=== PATIENT | female | born 1970 | race Hispanic/Latino ===

== ENCOUNTER 2017-01-16 09:16 | Day surgery (SDC) | payer MEDICAID ==
[2017-01-16] MEDS ORDERED: Dexamethasone 10 MG, Admixture Fee 1 EACH in Sodium Chloride 0.9% 50 ML IVPB SCH (09:30)
[2017-01-16] MEDS ORDERED: Famotidine/PF 20 MG, Admixture Fee 1 EACH in Sodium Chloride 0.9% 50 ML IVPB SCH (09:30)
[2017-01-16] MEDS ORDERED: PERTUZUMAB IVPB SCH (09:30)
[2017-01-16] MEDS ORDERED: SODIUM CHLORIDE IVPB SCH ×3 (09:30→09:45)
[2017-01-16] MEDS ORDERED: Palonosetron HCl 0.25 MG, Admixture Fee 1 EACH in Sodium Chloride 0.9% 50 ML IVPB SCH (09:30)
[2017-01-16] MEDS ORDERED: ADMIXTURE FEE IVPB SCH ×3 (09:30→09:45)
[2017-01-16 09:44] VITALS: BP 118/64; TEMP 98
[2017-01-16] MEDS ORDERED: TRASTUZUMAB IVPB SCH (09:45)
[2017-01-16] MEDS ORDERED: DOCETAXEL IVPB SCH (09:45)
[2017-01-16] MEDS ORDERED: FLU VACC QS2017-18 36 mo. & older 0.5 ML SYRINGE IM ONE (21:00)
== END 2017-01-16 14:18 | disposition home or self-care (01) ==
LOC: ONC/OP 09:16
PROVIDERS: ATTEND Internal Medicine Medical Oncology
DX: Z51.11 Encounter for antineoplastic chemotherapy (principal); C50.812 Malignant neoplasm of overlapping sites of left female breast; Z79.1 Long term (current) use of non-steroidal anti-inflammatories (NSAID); Z17.1 Estrogen receptor negative status [ER-]
CPT/HCPCS: 96367; 96413; 96417; A4216; J1100; J1642; J2469; J7050; J9171; J9306; J9355; S0028

== ENCOUNTER 2017-02-06 11:05 | Day surgery (SDC) | payer MEDICAID, OTHER ==
[2017-02-06] MEDS ORDERED: Sodium Chloride 0.9% 20 ML ONE (11:16)
[2017-02-06] MEDS ORDERED: Dexamethasone 10 MG, Admixture Fee 1 EACH in Sodium Chloride 0.9% 50 ML IVPB SCH (11:30)
[2017-02-06] MEDS ORDERED: Palonosetron HCl 0.25 MG, Admixture Fee 1 EACH in Sodium Chloride 0.9% 50 ML IVPB SCH (11:30)
[2017-02-06] MEDS ORDERED: SODIUM CHLORIDE IVPB SCH ×3 (11:30→11:45)
[2017-02-06] MEDS ORDERED: PERTUZUMAB IVPB SCH (11:30)
[2017-02-06] MEDS ORDERED: ADMIXTURE FEE IVPB SCH ×3 (11:30→11:45)
[2017-02-06] MEDS ORDERED: Famotidine/PF 20 MG, Admixture Fee 1 EACH in Sodium Chloride 0.9% 50 ML IVPB SCH (11:45)
[2017-02-06] MEDS ORDERED: TRASTUZUMAB IVPB SCH (11:45)
[2017-02-06] MEDS ORDERED: DOCETAXEL IVPB SCH (11:45)
[2017-02-06 11:50] VITALS: BP 114/57; TEMP 98.6
== END 2017-02-06 16:07 | disposition home or self-care (01) ==
LOC: ONC/OP 11:05
PROVIDERS: ATTEND Internal Medicine Medical Oncology
DX: Z51.11 Encounter for antineoplastic chemotherapy (principal); C50.812 Malignant neoplasm of overlapping sites of left female breast; Z79.899 Other long term (current) drug therapy; Z17.1 Estrogen receptor negative status [ER-]
CPT/HCPCS: 96367; 96375; 96413; 96417; A4216; J1100; J1642; J2469; J7050; J9171; J9306; J9355; S0028

== ENCOUNTER 2017-02-27 10:40 | Day surgery (SDC) | payer OTHER ==
[2017-02-27] MEDS ORDERED: Famotidine/PF 20 mg/2ml Vial SLOW IVP SCH (11:30)
[2017-02-27] MEDS ORDERED: Palonosetron HCl 0.25 MG, Admixture Fee 1 EACH in Sodium Chloride 0.9% 50 ML IVPB SCH (11:30)
[2017-02-27] MEDS ORDERED: Dexamethasone 10 MG, Admixture Fee 1 EACH in Sodium Chloride 0.9% 50 ML IVPB SCH (11:30)
[2017-02-27] MEDS ORDERED: TRASTUZUMAB IVPB SCH (11:45)
[2017-02-27] MEDS ORDERED: ADMIXTURE FEE IVPB SCH ×2 (11:45)
[2017-02-27] MEDS ORDERED: SODIUM CHLORIDE IVPB SCH ×2 (11:45)
[2017-02-27] MEDS ORDERED: DOCETAXEL IVPB SCH (11:45)
[2017-02-27] MEDS: PERTUZUMAB IVPB SCH ×2 (13:05→14:33)
[2017-02-27] MEDS: SODIUM CHLORIDE IVPB SCH ×2 (13:05→14:33)
[2017-02-27] MEDS: ADMIXTURE FEE IVPB SCH ×2 (13:05→14:33)
[2017-02-27 17:38] VITALS: BP 101/58; TEMP 98
== END 2017-02-27 16:10 | disposition home or self-care (01) ==
LOC: ONC/OP 10:40
PROVIDERS: ATTEND Internal Medicine Medical Oncology
DX: Z51.11 Encounter for antineoplastic chemotherapy (principal); C50.812 Malignant neoplasm of overlapping sites of left female breast; Z17.1 Estrogen receptor negative status [ER-]; Z98.890 Other specified postprocedural states
CPT/HCPCS: 96367; 96375; 96413; 96417; 99211; G0463; J1100; J2469; J7050; J9171; J9306; J9355; S0028

== ENCOUNTER 2017-03-07 12:29 | Outpatient (CLI) | payer OTHER | END 2017-03-07 12:30 | disposition home or self-care (01) | LOC: ULT 12:29 | PROVIDERS: ATTEND Internal Medicine Medical Oncology | DX: Z51.11 Encounter for antineoplastic chemotherapy (principal); C50.812 Malignant neoplasm of overlapping sites of left female breast; Z79.899 Other long term (current) drug therapy | CPT/HCPCS: 93306 ==

== ENCOUNTER 2017-03-20 10:57 | Day surgery (SDC) | payer OTHER ==
[2017-03-20] MEDS ORDERED: Dexamethasone 10 MG in Sodium Chloride 0.9% 50 ML IVPB SCH (11:15)
[2017-03-20] MEDS ORDERED: SODIUM CHLORIDE 0.9% IVPB SCH ×4 (11:15→11:45)
[2017-03-20] MEDS ORDERED: TRASTUZUMAB IVPB SCH ×3 (11:15→11:45)
[2017-03-20] MEDS ORDERED: DOCETAXEL IVPB SCH (11:15)
[2017-03-20] MEDS ORDERED: Famotidine/PF 20 mg/2ml Vial SLOW IVP SCH (11:15)
[2017-03-20] MEDS ORDERED: Pertuzumab 420 MG in Sodium Chloride 0.9% 250 ML 250 ML IVPB SCH (11:15)
[2017-03-20] MEDS ORDERED: Palonosetron HCl 0.25 MG in Sodium Chloride 0.9% 50 ML IVPB SCH (11:15)
[2017-03-20 12:11] VITALS: BP 118/67; TEMP 98
[2017-03-20] MEDS ORDERED: Sodium Chloride 0.9% 20 ML ONE (12:17)
== END 2017-03-20 17:07 | disposition home or self-care (01) ==
LOC: ONC/OP 10:57
PROVIDERS: ATTEND Internal Medicine Medical Oncology
DX: Z51.11 Encounter for antineoplastic chemotherapy (principal); C50.812 Malignant neoplasm of overlapping sites of left female breast; Z17.1 Estrogen receptor negative status [ER-]; Z98.890 Other specified postprocedural states; Z79.899 Other long term (current) drug therapy
CPT/HCPCS: 96367; 96375; 96413; 96417; A4216; J1100; J1642; J2469; J5355; J7050; J9171; J9306; J9355; S0028

== ENCOUNTER 2017-04-10 10:04 | Day surgery (SDC) | payer OTHER ==
[2017-04-10] MEDS ORDERED: SODIUM CHLORIDE 0.9% IVPB SCH (11:00)
[2017-04-10] MEDS ORDERED: TRASTUZUMAB IVPB SCH (11:00)
[2017-04-10] MEDS ORDERED: Sodium Chloride 0.9% 20 ML ONE (11:59)
== END 2017-04-10 13:50 | disposition home or self-care (01) ==
LOC: ONC/OP 10:04
PROVIDERS: ATTEND Internal Medicine Medical Oncology
DX: Z51.11 Encounter for antineoplastic chemotherapy (principal); C50.812 Malignant neoplasm of overlapping sites of left female breast; Z17.1 Estrogen receptor negative status [ER-]; Z79.899 Other long term (current) drug therapy; Z98.890 Other specified postprocedural states
CPT/HCPCS: 96413; A4216; J1642; J7050; J9355

== ENCOUNTER 2017-05-01 10:04 | Day surgery (SDC) | payer OTHER ==
--- NOTE | 2017-04-25 19:47 | HP ---
HISTORY OF PRESENT ILLNESS: Sherri Russell is a 46-year-old female who I saw on 11/19/2016, biopsy left breast cancer, advanced T4 with palpable lymphadenopathy, placed a MediPort. She has bee n seeing Dr. Schuster and has completed new adjunctive therapy with TCH and Perjeta for poorly differ entiated invasive ductal carcinoma of the left breast with ulceration of the nipple and multiple cuta neous nodules, ER/UT negative, HER-2 positive, stage 3B, T4b N1a M0 G3. Patient has completed chemot herapy and referred for mastectomy. She has Medicaid. She had an appointment to see Dr. Lawrence stevenson to discuss reconstruction, but this was postponed because of weather condition. She has an appoint ment to see him in 05/14/2017. Plan is for a left modified radical mastectomy, sentinel node biopsy, probably node dissection and two weeks postoperatively, Dr. Ndiaye will place an inpatient pharmacist and 2 weeks after that she will probably begin radiation therapy, continue chemotherapy and at a later time begin left breast expansion preparation for reconstruction. Patient's Medicaid is a problem as far as rec onstruction as Medicaid will not reliably cover reconstructive procedures. Breast cancer nurse navig ator has been performed and she will evaluate this. Once the patient sees Dr. Lawrence Ndiaye, Plastic Surgery, we will schedule her surgery. Risks of infection, bleeding, reoperation discussed and conse nts. MEDICATIONS: None routinely. PAST MEDICAL HISTORY: Left breast cancer, advanced as noted above. PAST SURGICAL HISTORY: C-sections, MediPort placement, left breast biopsy, 11/05/2016. FAMILY HISTORY: Noncontributory. TOBACCO: None. ALCOHOL: None. SOCIAL HISTORY: The patient is . REVIEW OF SYSTEMS: Ten point noncontributory, otherwise. PHYSICAL EXAMINATION: VITAL SIGNS: 133 pounds, 63 inches, 19 BMI, 90/57 blood pressure, 88 heart rate, temperature 98.2 de grees. HEENT: Unremarkable. LUNGS: Clear to auscultation. CARDIAC: Regular rate and rhythm without murmur or gallop. ABDOMEN: Soft, nontender. Right chest MediPort, right breast and right axilla without masses. Left axilla without obvious lymphadenopathy. Left breast mass, upper outer quadrant approximately 4-6 cm . There are some small nodules in the skin overlying this, but much smaller than before, history of prior residual after chemotherapy. ASSESSMENT: Advanced left breast cancer. PLAN: Left modified radical mastectomy with Plastic Surgery followup and postop most likely she will require radiation therapy. We will plan sentinel node biopsy. She will plan axillary node dissecti on if indicated, which is very good likelihood. Risks and benefits explained. She consents.
[2017-05-01] MEDS ORDERED: Sodium Chloride 0.9% 20 ML ONE (10:21)
[2017-05-01] MEDS ORDERED: SODIUM CHLORIDE IVPB SCH (10:30)
[2017-05-01] MEDS ORDERED: ADMIXTURE FEE IVPB SCH (10:30)
[2017-05-01] MEDS ORDERED: TRASTUZUMAB IVPB SCH (10:30)
[2017-05-01 11:02] VITALS: BP 90/33; TEMP 97.2
== END 2017-05-01 13:13 | disposition home or self-care (01) ==
LOC: ONC/OP 10:04
PROVIDERS: ATTEND Internal Medicine Medical Oncology
DX: Z51.11 Encounter for antineoplastic chemotherapy (principal); C50.812 Malignant neoplasm of overlapping sites of left female breast; Z98.891 History of uterine scar from previous surgery; Z98.890 Other specified postprocedural states
CPT/HCPCS: 96413; A4216; J1642; J7050; J9355

== ENCOUNTER 2017-05-22 10:22 | Day surgery (SDC) | payer OTHER ==
[2017-05-22] MEDS ORDERED: ADMIXTURE FEE IVPB SCH (10:30)
[2017-05-22] MEDS ORDERED: SODIUM CHLORIDE IVPB SCH (10:30)
[2017-05-22] MEDS ORDERED: TRASTUZUMAB IVPB SCH (10:30)
[2017-05-22] MEDS ORDERED: Sodium Chloride 0.9% 20 ML ONE (10:45)
== END 2017-05-22 12:50 | disposition home or self-care (01) ==
LOC: ONC/OP 10:22
PROVIDERS: ATTEND Internal Medicine Medical Oncology
DX: Z51.11 Encounter for antineoplastic chemotherapy (principal); C50.812 Malignant neoplasm of overlapping sites of left female breast; Z17.1 Estrogen receptor negative status [ER-]; Z95.828 Presence of other vascular implants and grafts; Z98.890 Other specified postprocedural states
CPT/HCPCS: 80048; 85025; 96413; A4216; J1642; J7050; J9355

== ENCOUNTER 2017-06-02 19:02 | Inpatient (IN) | payer OTHER ==
[2017-06-02] MEDS ORDERED: HYDROcodone/Acetaminophen 5/325 mg Tablet PO PRN (21:46)
[2017-06-02] MEDS ORDERED: Ondansetron HCl/PF 4 MG/2 ML Vial IVP PRN (21:46)
[2017-06-02] MEDS ORDERED: Ondansetron ODT 4 MG TAB PO PRN (21:46)
[2017-06-02] MEDS ORDERED: Milk Of Magnesia 30 ML UDCUP PO PRN (21:46)
[2017-06-02 21:53] VITALS: BMI 21.3
[2017-06-03] MEDS ORDERED: Ibuprofen 200 MG TAB PO PRN (00:01)
[2017-06-03] MEDS ORDERED: Dexamethasone 10 MG in Sodium Chloride 0.9% 50 ML IVPB SCH (00:15)
[2017-06-03] MEDS ORDERED: Dexamethasone 4 mg/ml Vial SLOW IVP SCH (00:15)
[2017-06-03] MEDS ORDERED: Sodium Chloride 0.9% 1,000 ML IV SCH (00:15)
[2017-06-03] MEDS: Dexamethasone 4 mg/ml Vial SLOW IVP SCH ×2 (01:39→05:33)
--- NOTE | 2017-06-03 02:16 | HP ---
PRIMARY CARE PHYSICIAN: None. PRESENTING COMPLAINT: Headaches. HISTORY OF PRESENT ILLNESS: 47-year-old lady, who was diagnosed with breast cancer a year ago and status post chemotherapy. She was recently diagnosed with recurrent about 2 weeks ago. Today, she complains of 4 day history of headaches associated with low grade fever and chills as well as nausea and vomiting. Headaches is throbbing and radiating from the occipital to the frontal area, intermittent 8/10 and associated with blurry vision. There is no photophobia. She has no other symptoms. She went to the ER, where a CT brain was done, which shows multiple areas of edema throughout the brain, most likely around, parenchymal mass, suggestive of metastatic disease. She also had a CTA chest, which revealed a large left breast mass with diffuse interstitial thickening in the lungs, but no evidence of pulmonary emboli. There were also small sclerotic areas in the thoracic vertebrae, suspicious for metastatic disease. Dr. Schuster was then called, who recommended admission and IV steroid administration as well as Oncology consult. PAST MEDICAL HISTORY: Breast cancer. PAST SURGICAL HISTORY: section. FAMILY HISTORY: Reviewed and noncontributory. SOCIAL HISTORY: Does not smoke cigarettes, but drinks alcohol occasionally ( less than 1 drink a day). ALLERGIES: None. REVIEW OF SYSTEMS: Constitutional: Per HPI. HEENT: Positive headaches, changes in vision Respiratory: Negative for shortness of breath, chest pain or cough. CVS: Negative. Abdomen: Negative. Skin: Negative. Musculoskeletal: Negative. Neurologic: Positive headaches. Allergy/ immunology: Negative. Hematology: Negative. Psychiatric: Negative. Denies depressed mood, homicidal or suicidal ideations. PHYSICAL EXAMINATION: VITAL SIGNS: Temperature 98.4, pulse 107, respiratory rate 18, oxygen saturation 94% on room air, blood pressure 124/81. GENERAL: Not in acute distress, sitting comfortably in bed. HEENT: Normocephalic, atraumatic, no pallor, anicteric. PERRLA, EOMI. RESPIRATORY: Vesicular breath sounds bilaterally. No wheezes or rales. CARDIOVASCULAR: Slightly tachycardic with normal rhythm. S1, S2 only. No murmurs, rubs or gallops. ABDOMEN: Bowel sounds positive, nontender, nondistended, no organomegaly. MUSCULOSKELETAL: No skeletal abnormalities. SKIN: Warm, dry, well-perfused. No rashes or lesions. NEUROLOGIC: Alert and oriented to time, place and person. No focal deficits. PSYCHIATRIC: Normal mood and affect. LABORATORY DATA: WBC 12.4, otherwise normal. Significant chemistry: Potassium 3.3, slightly elevated lactic dehydrogenase, ALT/AST ratio. IMAGING: As stated in the HPI. ASSESSMENT AND PLAN: 1. Headaches likely from metastatic breast cancer as seen on CT brain. She has been started on IV Decadron. We will monitor vital signs closely and get Oncology consult. 2. Tachycardia. We will hydrate and monitor vital signs closely. Also ensure adequate pain control. She is currently symptom free. CODE STATUS: Full. MTDD
[2017-06-03] MEDS ORDERED: Zolpidem Tartrate 5 MG TAB PO PRN (02:35)
[2017-06-03 05:27] LABS: Anion Gap 14 mmol/L (10-20); BUN (Urea Nitrogen) 13 mg/dL (7.0-18.7); Calc. Creatinine Clearance 81 mL/min (70-130); Calcium 9.9 mg/dL (7.8-10.44); Carbon Dioxide 21 mmol/L (22-29); Chloride 106 mmol/L (98-107); Estimated GFR-MDRD 86; Glucose 144 mg/dL (70-105); Potassium 3.9 mmol/L (3.5-5.1); Sodium 137 mmol/L (136-145)
[2017-06-03 05:32] LABS: #Lymphocytes 1.2 thou/uL (1.20-3.40); #Neutrophils 9.2 thou/uL (1.40-6.50); %Eosinophils 0.1 % (0.0-10.0); %Monocytes 0.4 % (0.0-10.0); %Neutrophils 88.4 % (42.0-75.0); Hemoglobin 12.2 g/dL (12.0-16.0); Mean Corpuscular HGB CONC 32.8 g/dL (32.0-36.0); Mean Corpuscular Hemoglobin 29.8 pg (27.0-31.0); Mean Corpuscular Volume 90.7 fl (81.0-99.0); Mean Platelet Volume 7.5 fL (7.4-10.4); Platelet Count 333 thou/uL (130-400); RBC Distribution Width 12.9 % (11.5-14.5); Red Blood Cell (RBC) Count 4.11 mill/uL (4.20-5.40); White Blood Cell (WBC) Count 10.4 thou/uL (4.8-10.8)
[2017-06-03] MEDS: Acetaminophen 325 MG TAB PO PRN ×2 (07:43→13:20)
[2017-06-03] MEDS ORDERED: FLU VACC QS2017-18 36 mo. & older 0.5 ML SYRINGE IM ONE (09:00)
[2017-06-03] MEDS ORDERED: Prevnar 13-Val Conj/PF 0.5 ML SYRINGE IM ONE (09:00)
--- NOTE | 2017-06-03 11:01 | CON ---
DATE OF CONSULTATION: 06/03/2017 REASON FOR CONSULTATION: Ms. Yousif Russell is a 47-year-old female who now has suspected brain me tastasis from her previously known stage IV breast cancer. I was asked to see her to discuss her opt ions with radiation therapy. HISTORY OF PRESENT ILLNESS: Ms. Russell presented towards the end of last summer with an extensive ra sh on the breast and mass in the left breast. This was felt to be an inflammatory cancer. Biopsy co nfirmed the diagnosis of a grade III invasive ductal carcinoma. The tumor was estrogen receptor nega tive and HER2 receptor positive. Biopsy from the skin confirmed dermal lymphatic involvement. She w as seen by Dr. Schuster and Dr. Vanegas. A PET scan was obtained which showed extensive masses in the breast as well as thickening of the skin. There is axillary adenopathy. There was adenopathy seen in the chest. There were multiple lesions in the bone consistent with bone metastasis, as well as a lesion in the liver consistent with liver metastasis. Thus, she was clinically felt to have stage IV , T4d, N1 M1 disease. She was started on chemotherapy under the direction of Dr. Schuster. This elia motherapy consisted of Taxotere, Herceptin, and Perjeta. She had a good response to her chemotherapy . She was seen by Dr. Vanegas for consideration of surgery, but she apparently wish to pursue reconst ructive surgery as well. There was some delay because of the possible reconstructive surgery. More recently, she has developed some recurrent nodules on the skin. She [facility] with significant headaches for 4 days and vomiting. She was also having a cough. This led to a CT angiogram of the chest which confirmed the abnormalities in the breast. It also showed a di ffuse infiltrate bilaterally of unknown significance in the lungs. CT scan of the head showed multip le areas of vasogenic edema which was likely surrounding multiple nodules in the brain consistent wit h brain metastasis. She was admitted to the hospital for workup and evaluation. Dexamethasone was s tarted and today she reports complete resolution of her headaches and vomiting. I have been asked by Dr. Schuster to see her for consideration of radiation therapy. Presently she denies any pain. She does report a weight loss of 4-6 pounds during chemotherapy. She reports that she is breathing well . She has had a cough which is nonproductive for a week. She denies any hemoptysis. She is not hav ing any itching of the skin or breast complaints. She voices no other complaints. PAST MEDICAL HISTORY: 1. Breast cancer as mentioned above. 2. Status post x1. 3. She denies other medical or surgical problems. MEDICATIONS: Dexamethasone, and Zofran p.r.n. ALLERGIES: No known medical allergies. SOCIAL HISTORY: She lives here in town with her and children. She denies any cigarette or t obacco use. She rarely drinks alcohol. She is working at [employer] FAMILY HISTORY: Negative for breast or ovarian cancer. Her brother from stomach cancer in his 50s. Her father at age 59 from thyroid cancer. There is no other family history of malignancy. REVIEW OF SYSTEMS: Twelve system review of systems was performed and is otherwise negative. PHYSICAL EXAMINATION: VITAL SIGNS: Height 5 feet 3 inches, weight 120 pounds, blood pressure 113/73, pulse is 99, respirat ions are 18, temperature 97.8, O2 saturation is 99%. GENERAL: She is alert and oriented and in no apparent distress. She is well-developed and well-nour ished. Karnofsky performance status is a 90%. HEENT: Eyes; pupils are equal, round, and reactive to light. Extraocular movements are intact. ENT : Oral cavity and oropharynx normal without lesion or erythema. Palate elevates symmetrically. Gin giva is intact. NECK: Supple, without cervical or supraclavicular adenopathy. No thyromegaly. Larynx is midline. LUNGS: Breathing nonlabored. Clear to auscultation and percussion. HEART: Tachycardic without murmur. No lower extremity edema. BACK: No tenderness on fist percussion of her spine. ABDOMEN: No axillary or inguinal adenopathy. BREASTS: Skin over the left breast reveals erythematous nodules which extend to the midline over the sternum. The breast is diffusely firm but especially in the upper outer quadrant where there is a l arge palpable mass. ABDOMEN: Bowel sounds present. Soft, nontender, nondistended, without mass or hepatosplenomegaly. Liver percussed to normal size. SKIN: Alopecia is present. No rash or purpura. NEUROLOGIC: Cranial nerves II-XII grossly intact. Motor strength is 5/5 in both upper and lower ext remities in all muscle groups tested. Reflexes are normal and symmetrical. Gait was not tested. LABORATORY: Initial biopsy showed a grade III invasive ductal carcinoma involving the dermal lymphat ics. The tumor was estrogen receptor negative and HER2 receptor positive. CBC on admission revealed a white blood cell count of 10,400 with hemoglobin of 12.2, hematocrit 37.3, platelet count 333,000. Chemistry group revealed normal electrolytes with a creatinine of 0.72 and a GFR of 86. RADIOLOGIC: CT scan of the head and CT angiogram from admission were both personally reviewed. Agai n, she has masses in the left breast with significant skin thickening. There are bilateral pulmonary infiltrates of unknown significance. CT of the head shows multiple areas of vasogenic edema with so me associated nodularity suggestive of brain metastasis. There was no evidence of bleed. Contrast w as not utilized. Previous PET scan at diagnosis was also personally reviewed, which showed numerous masses in the breast and skin thickening. There was mediastinal adenopathy. There were multiple les ions in the bone consistent with bone metastasis and lesions in the liver consistent with liver metas tasis. ASSESSMENT: Ms. Yousif Russell is a 47-year-old female with an initial clinical stage IV, T4d N1 M I grade III invasive ductal carcinoma of the left breast, who initially had an excellent response to her chemotherapy. Unfortunately, her disease has begun to grow despite maintenance Herceptin and she now has evidence of brain metastasis on her CT angiogram. Her symptoms from her brain metastasis tolbert ve resolved with her dexamethasone use. PLAN: I do agree with the initiation of dexamethasone. I would change this over to a p.o. dosing. I would also start her on Pepcid. I would recommend that we obtain an MRI of the brain to further ev aluate the brain metastasis. Because she has multiple spots likely the best treatment is going to be whole-brain radiation therapy. I made this recommendation to her. The logistics of radiation as we ll as the benefits and risks of treatment were discussed. A simulation procedure was discussed in de pth. Side effects would include but not be limited to skin reaction, fatigue, lower blood counts, tolbert ir loss which may be permanent, headache, nausea, vomiting, and small risk of damage to her normal br ain which might affect mentation or memory. Time was taken to answer all their questions regarding r adiation. She is tentatively agreeable to proceed. We can obtain the MRI today and hopefully can pr oceed with simulation tomorrow. Her treatment can then be given mostly as an outpatient. I am unsure of the significance of the bilateral pulmonary infiltrates. I would leave this to the spitalist and Medical Oncology to determine the significance of that and whether further workup or tr eatment is needed for that. Thank you for this interesting consultation.
--- NOTE | 2017-06-03 11:21 | CON ---
DATE OF CONSULTATION: 06/03/2017 REASON FOR CONSULTATION: Breast cancer. HISTORY OF PRESENT ILLNESS: Ms. Russell is a 47-year-old female who was diagnosed with stage IIIB ER/IL negative, HER-2 positive invasive ductal carcinoma of the left breast. She had a large m ass that occupied most of the breast with ulceration of the nipple where multiple cutaneous and ipsil ateral axilla lymph nodes noted on exam. She has been treated with Taxotere, carboplatin, and Perjet a for the last few months and Herceptin. She has received a total of 6 cycles. She was seen by Dr. Schuster last week and found to have developed more areas of skin involvement. They were all biopsie d and positive for breast cancer. The plan was to give her additional chemotherapy. She did complai n of a headache at that time and a brain MRI was scheduled; however, she presented to [place] ER this weekend with pain. Brain CT performed did show multiple areas of edema throughout the brain co nsistent with metastatic disease. She was started on IV steroids and admitted for further workup. S he had a CT angio of the chest which again showed the large left breast mass. She did have diffuse i nterstitial thickening in the lungs, worrisome for lymphangitic spread of tumor. She does complain o f a dry cough, particularly with speaking. There were several areas in the thoracic vertebrae suspic ious for metastatic disease. PAST MEDICAL HISTORY: Stage IV metastatic breast cancer of the left breast. PAST SURGICAL HISTORY: Multiple breast biopsies, MediPort placement. ALLERGIES: No known drug allergies. HOME MEDICATIONS: 1. Dexamethasone 4 mg daily. 2. Promethazine p.r.n. FAMILY HISTORY: Negative for breast cancer. SOCIAL HISTORY: , has 4 children. No alcohol, tobacco or illicit drug use. REVIEW OF SYSTEMS: Ten point review of systems is negative except for noted in HPI. PHYSICAL EXAMINATION: VITAL SIGNS: Temperature is 97.8, pulse is 99, respiratory rate 18, BP is 113/73. She is 99% on lizbeth m air. GENERAL: Well-developed, well-nourished female in no acute distress. HEENT: Normocephalic, atraumatic. Pupils are equal and reactive to light. NECK: Supple. CARDIOVASCULAR: Regular rate and rhythm. LUNGS: Clear. ABDOMEN: Soft, nontender, bowel sounds are positive. EXTREMITIES: There is no clubbing, cyanosis or edema. SKIN: She has noted metastatic lesions of her left breast. NEUROLOGIC: Nonfocal. PSYCHIATRIC: The patient is alert and oriented and appropriate. PERTINENT LABORATORY AND X-RAYS: Current WBCs are 10.4, hemoglobin 12.2, hematocrit 37.3, platelet c ount 333,000, 88% neutrophils, 11% lymphocytes. Sodium is 137, potassium 3.9, chloride 106, CO2 is 2 1, BUN is 13, creatinine 0.72, calcium is 9.9. Serum total protein is 7.4. IMPRESSION: 1. Metastatic breast cancer with new brain lesions. 2. Cough with interstitial infiltrates on scan. DISCUSSION: The patient has been seen by Dr. Martinez. MRI brain is scheduled with possible simulation tomorrow. She has been placed on steroids and Pepcid. We will do a bone scan to look for further b rain mets and she will follow up in the outpatient setting for chemotherapy. Thank you for the consult.
--- NOTE | 2017-06-03 16:35 | MRI ---
MRI BRAIN WITH AND WITHOUT IV CONTRAST: Date: 06/03/17 HISTORY: Breast cancer. Abnormal CT head demonstrating vasogenic edema and findings suggestive of metastatic b rain disease. COMPARISON: CT head obtained earlier on today's date. FINDINGS: There are innumerable enhancing lesions seen throughout each cerebral hemisphere, as well as involvin g the bilateral cerebellar hemispheres. The largest enhancing lesion in the left supraventricular fro ntal lobe measures 1.8 cm with largest lesion in the right cerebral hemisphere seen within the right temporal lobe measuring 1.1 cm. There is also a large heterogeneously enhancing lesion seen in the le ft cerebellar hemisphere which measures approximately 2.9 cm in maximal dimensions with largest lesio n in the right cerebellar hemisphere measuring 1.8 cm. There is an enhancing lesion in the superior a spect of the mid brain measuring 1.1 cm, resulting in mild mass effect on the adjacent third ventricl e. There is also an enhancing lesion seen within the cerebellar vermis./ There are areas of vasogenic edema seen within the cerebral hemispheres bilaterally, secondary to the multiple brain lesions. Areas of vasogenic edema are present in the cerebellar hemisphere, much more prominent on the left. Greatest degree of vasogenic edema is seen adjacent to the largest lesion in the left cerebral hemisphere, as well as in the left cerebellar hemisphere. There is no midline shift or hydrocephalus seen. There is no acute infarction identified. Appropriate flow-voids are demonstrated at the base of the b rain. The orbits, paranasal sinuses, and skull base have a normal MRI appearance. IMPRESSION: Innumerable metastatic lesions within the bilateral cerebral and cerebellar hemispheres with scattere d areas of resultant vasogenic edema resulting in sulcal effacement in each cerebral hemisphere, grea ter on the left, as well as effacement of the cerebellar folia bilaterally, again greater on the left . POS: [facility]
--- NOTE | 2017-06-03 16:40 | NM ---
WHOLE BODY BONE SCAN: Date: 06-03-17 History: Breast cancer. Patient had headache. Recent CT scan of the brain at [facility] suggested metastatic brain lesions. Radiopharmaceutical: 28.1 mCi Technetium 99M labelled MVP, IV. View obtained: Anterior posterior whole body. FINDINGS: There is normal uptake of radiotracer seen within the kidneys and urinary bladder. There is symmetric but increased uptake seen within multiple joints which is overall nonspecific. Again, this is an ove rall symmetric finding. There are no focal areas of uptake radiotracer seen to suggest osseous metast atic disease. IMPRESSION: 1. No scintigraphic evidence of osseous metastatic disease. 2. Nonspecific symmetric polyarticular joint uptake. POS: [facility]
[2017-06-03] MEDS: Dexamethasone 4 MG TAB PO SCH ×2 (16:59→21:39)
--- NOTE | 2017-06-03 20:42 | PDOC.PN ---
- Subjective Encounter Start Date: 06/03/17 Encounter Start Time: 20:25 Subjective: f/u for SWAN's shown to be innumerable brain mets from breast CA. Plan for -: whole-brain XRT. SWAN's improved with Dexamethasone, Ibuprofen and [place]. - Objective MAR Reviewed: Yes Vital Signs & Weight: Weight Admit Weight 120 lb 4.8 oz Weight 120 lb 4.8 oz I&O: 06/02/17 06/03/17 06/04/17 06:59 06:59 06:59 Intake Total 1710 1000 Balance 1710 1000 Result Diagrams: 06/03/17 04:48 06/03/17 04:48 Radiology Reviewed by me: Yes (MRI brain - innumerable brain mets) Phys Exam - Physical Examination Constitutional: NAD HEENT: PERRLA, oral pharynx no lesions Neck: no JVD, supple Respiratory: no wheezing, clear to auscultation bilateral Cardiovascular: RRR Gastrointestinal: soft, non-tender, no distention, positive bowel sounds Musculoskeletal: no edema, pulses present Neurological: normal sensation, moves all 4 limbs Psychiatric: A&O x 3 Skin: normal turgor, cap refill <2 seconds Deviation from normal: skin changes and ulcerations on L chest region Dx/Plan (1) Breast carcinoma metastatic to multiple sites Code(s): C50.919 - MALIGNANT NEOPLASM OF UNSP SITE OF UNSPECIFIED FEMALE BREAST Status: Acute Qualifiers: Laterality: left Qualified Code(s): C50.912 - Malignant neoplasm of unspecified site of left female breast Comment: Poor prognosis given aggressive metastasis, Medical and Rad Oncology following (2) Cerebral edema Code(s): G93.6 - CEREBRAL EDEMA Status: Acute Comment: Innumerable mets to brain by MRI, plan for whole-brain XRT, continue Dexamethasone 4mg TID (3) Headache Code(s): R51 - HEADACHE Status: Acute Comment: Secondary to metastastic burden, pain control (4) Blurred vision, bilateral Code(s): H53.8 - OTHER VISUAL DISTURBANCES Status: Acute Comment: Due to metastatic disease, continue Dexamethasone, see above - Plan plan discussed w/ family, social insurance analyst, DVT proph w/SCDs Continue supportive mgmt -: Plan for whole-brain XRT -: Continue Dexamethasone -: [place]port for pain control -: Restoril 15mg HS * .
[2017-06-03] MEDS: Famotidine 20 MG TAB PO SCH (21:38)
[2017-06-03] MEDS: Temazepam 15 MG CAP PO PRN (21:39)
[2017-06-04] MEDS: Acetaminophen 325 MG TAB PO PRN (05:24)
[2017-06-04] MEDS: Famotidine 20 MG TAB PO SCH ×2 (08:54→20:19)
[2017-06-04] MEDS: Dexamethasone 4 MG TAB PO SCH ×3 (08:54→20:18)
[2017-06-04] MEDS ORDERED: ISOVUE-370 76%-LOCM 1 ML ONE (12:48)
--- NOTE | 2017-06-04 14:08 | PDOC.PN ---
- Subjective Encounter Start Date: 06/04/17 Encounter Start Time: 12:55 -: old records requested/rev Pt seen and examined, chart reviewed in its entirety, this is my first visit with this patient No F/C, no N/V/D/C, no CP, no SOB complains of dry cough. no hemoptysis. to go for radrx treatment at 1415 today. Will follow up on onc recommendations regarding dispo planning very minimal headache today 10 point ROS performed and neg for all systems except as per HPI - Objective MAR Reviewed: Yes Vital Signs & Weight: Vital Signs (12 hours) Temp Pulse Resp BP BP Pulse Ox 06/04/17 08:10 97.4 F L 104 H 18 116/57 L 94 L 06/04/17 08:00 97.4 F L 104 H 18 06/04/17 04:00 98.3 F 100 16 114/57 L 94 L Weight Admit Weight 120 lb 4.8 oz Weight 120 lb 4.8 oz I&O: 06/03/17 06/04/17 06/05/17 06:59 06:59 06:59 Intake Total 1710 1240 600 Balance 1710 1240 600 Result Diagrams: 06/03/17 04:48 06/03/17 04:48 Radiology Reviewed by me: Yes EKG Reviewed by me: Yes Phys Exam - Physical Examination Constitutional: NAD HEENT: PERRLA, moist MMs, sclera anicteric, oral pharynx no lesions Neck: no nodes, no JVD, supple, full ROM Respiratory: no wheezing, no rales, no rhonchi, clear to auscultation bilateral Cardiovascular: RRR, no significant murmur, no rub Gastrointestinal: soft, non-tender, no distention, positive bowel sounds Musculoskeletal: no edema, pulses present Neurological: non-focal, normal sensation, moves all 4 limbs Lymphatic: no nodes Psychiatric: normal affect, A&O x 3 Skin: no rash, normal turgor, cap refill <2 seconds Dx/Plan (1) Blurred vision, bilateral Code(s): H53.8 - OTHER VISUAL DISTURBANCES Status: Resolved Comment: Due to metastatic disease, continue Dexamethasone, see above (2) Breast carcinoma metastatic to multiple sites Code(s): C50.919 - MALIGNANT NEOPLASM OF UNSP SITE OF UNSPECIFIED FEMALE BREAST Status: Acute Qualifiers: Laterality: left Qualified Code(s): C50.912 - Malignant neoplasm of unspecified site of left female breast Comment: Poor prognosis given aggressive metastasis, Medical and Rad Oncology following (3) Cerebral edema Code(s): G93.6 - CEREBRAL EDEMA Status: Acute Comment: Innumerable mets to brain by MRI, plan for whole-brain XRT, continue Dexamethasone 4mg TID (4) Headache Code(s): R51 - HEADACHE Status: Acute Qualifiers: Headache type: other headache syndrome Qualified Code(s): G44.89 - Other headache syndrome Comment: Secondary to metastastic burden, pain control - Plan cont current plan of care, plan discussed w/ family, social services analyst * .
[2017-06-04] MEDS: Benzonatate 100 MG CAP PO PRN (16:51)
--- NOTE | 2017-06-04 17:40 | CT ---
HISTORY: Breast cancer. CONTRAST ENHANCED CT IMAGES ABDOMEN AND PELVIS: 06/04/17 Some patchy areas of density seen in the left lung base. This may represent areas of patchy pneumonia . More subtle similar areas also seen in the right middle lobe and right lung base. No evidence of free intraperitoneal air is seen. The liver, spleen, pancreas, gallbladder, adrenal glands and kidneys are unremarkable. No evidence of periaortic lymphadenopathy seen. A normal appendix is seen. Small bowel and colon are unremarkable. No evidence of periaortic lymphadenopathy seen. IMPRESSION: Unremarkable contrast enhanced CT images of abdomen and pelvis. POS: [facility]
[2017-06-04] MEDS: Temazepam 15 MG CAP PO PRN (20:19)
[2017-06-05 08:00] VITALS: BP 110/58; TEMP 98.1
[2017-06-05] MEDS: Famotidine 20 MG TAB PO SCH (09:10)
[2017-06-05] MEDS: Dexamethasone 4 MG TAB PO SCH (09:10)
[2017-06-05] MEDS: Benzonatate 100 MG CAP PO PRN (09:22)
== END 2017-06-05 15:18 | disposition home or self-care (01) | DRG 597 ==
LOC: T4-B 20:10 → INTOOBSV 20:10 → OBSVTOIN 20:10 → INTOOBSV 06-03 12:33 → ONC 06-03 18:20
PROVIDERS: ADMIT Internal Medicine; ATTEND Internal Medicine
DX: C50.912 Malignant neoplasm of unspecified site of left female breast (principal); G93.6 Cerebral edema; C79.31 Secondary malignant neoplasm of brain; R00.0 Tachycardia, unspecified; Z80.0 Family history of malignant neoplasm of digestive organs; Z80.8 Family history of malignant neoplasm of other organs or systems; Z17.0 Estrogen receptor positive status [ER+]; H53.8 Other visual disturbances; G44.89 Other headache syndrome
CPT/HCPCS: 36415; 70553; 74177; 77280; 77307; 77334; 77412; 78306; 80048; 85025; 90471; 90670; 90682; A4216; A9503; G0008; G0009; J1100; J8540; Q2036

== ENCOUNTER 2017-06-07 12:58 | Emergency (ER) | payer OTHER ==
[2017-06-07] MEDS ORDERED: Metoclopramide HCl 10 MG/2 ML VIAL ONE (13:24)
[2017-06-07] MEDS ORDERED: Ondansetron HCl/PF 4 MG/2 ML Vial ONE (13:24)
[2017-06-07] MEDS ORDERED: diphenhydrAMINE 25 MG CAP ONE (13:24)
[2017-06-07 14:17] LABS: #Eosinphils 0.1 thou/uL (0.0-0.7); #Lymphocytes 0.7 thou/uL (1.20-3.40); #Monocytes 0.3 thou/uL (0.11-0.59); #Neutrophils 14.8 thou/uL (1.40-6.50); %Basophils 0.1 % (0.0-1.0); %Eosinophils 0.4 % (0.0-10.0); %Lymphocytes 4.5 % (21.0-51.0); %Monocytes 1.8 % (0.0-10.0); %Neutrophils 93.2 % (42.0-75.0); Hemoglobin 13.8 g/dL (12.0-16.0); Mean Corpuscular HGB CONC 31.9 g/dL (32.0-36.0); Mean Corpuscular Volume 87.7 fl (81.0-99.0); Mean Platelet Volume 6.9 fL (7.4-10.4); Platelet Count 362 thou/uL (130-400); RBC Distribution Width 13.2 % (11.5-14.5); Red Blood Cell (RBC) Count 4.95 mill/uL (4.20-5.40); White Blood Cell (WBC) Count 15.9 thou/uL (4.8-10.8)
[2017-06-07 14:39] LABS: ALT (SGPT) 45 U/L (8-55); AST (SGOT) 30 U/L (5-34); Albumin 4.1 g/dL (3.5-5.0); Alkaline Phosphatase 135 U/L (40-150); Anion Gap 15 mmol/L (10-20); BUN (Urea Nitrogen) 16 mg/dL (7.0-18.7); Bilirubin, Total 0.3 mg/dL (0.2-1.2); Calc. Creatinine Clearance 0 mL/min (70-130); Calcium 9.9 mg/dL (7.8-10.44); Carbon Dioxide 25 mmol/L (22-29); Chloride 100 mmol/L (98-107); Estimated GFR-MDRD 83; Globulin 3.3 g/dL (2.4-3.5); Glucose 122 mg/dL (70-105); Potassium 4.7 mmol/L (3.5-5.1); Protein, Total 7.4 g/dL (6.0-8.3); Sodium 135 mmol/L (136-145)
--- NOTE | 2017-06-07 14:39 | CT ---
HEAD CT WITHOUT CONTRAST: Date: 06/07/17 COMPARISON: 06/02/17. HISTORY: Headaches and vomiting, breast cancer and brain cancer. TECHNIQUE: Serial axial CT imaging obtained at 5 mm intervals from vertex through skull base without contrast. FINDINGS: This examination is slightly limited by motion artifact. There is multifocal vasogenic edema involving bilateral cerebellar hemispheres, left greater than rig ht, as seen on the prior examination, evidence of underlying metastatic disease. The fourth ventricle appears grossly unchanged in caliber. There is mild prominence of the temporal horns of bilateral la teral ventricles when compared to the prior exam, with no gross ventricular enlargement. Scattered areas of vasogenic edema associated with underlying poorly visualized intracranial metastat ic lesions noted in bilateral frontal lobes, left greater than right, and bilateral parietal lobes, l eft greater than right. The degree of vasogenic edema is not significantly changed. Areas of vasogenic edema are also seen within the lateral and anterior aspect of the right temporal l obe and the inferior aspect of the left temporal lobe. Visualized paranasal sinuses and mastoid air cells are well aerated. No displaced calvarial fracture. IMPRESSION: No significant interval change in multifocal vasogenic edema both in the supratentorial and infratent orial regions, evidence of extensive underlying intracranial metastatic disease. Full extent of metas tatic disease would be best assessed via MRI or postcontrast CT. Extensive intracranial metastatic disease and associated vasogenic edema discussed with Juliana Smith on at 1340 hours on 06/07/17. CODE CR. POS: [facility]
[2017-06-07] MEDS ORDERED: Dexamethasone 4 MG TAB ONE (15:01)
== END 2017-06-07 16:01 | disposition home or self-care (01) ==
LOC: ERS 12:58
DX: R51 Headache (principal); R11.2 Nausea with vomiting, unspecified; Z85.3 Personal history of malignant neoplasm of breast
CPT/HCPCS: 70450; 80053; 85025; 96365; 96366; 96375; J2405; J2765; J8540

== ENCOUNTER 2017-07-03 10:50 | Day surgery (SDC) | payer OTHER ==
[2017-07-03] MEDS ORDERED: Sodium Chloride 0.9% 20 ML ONE (11:00)
[2017-07-03 11:07] VITALS: BP 129/81; TEMP 98
[2017-07-03] MEDS ORDERED: ADO TRASTUZUMAB EMTANSINE IVPB SCH ×2 (11:15)
[2017-07-03] MEDS ORDERED: SODIUM CHLORIDE 0.9% IVPB SCH ×2 (11:15)
[2017-07-03] MEDS ORDERED: HYDROcodone/Acetaminophen 5/325 mg Tablet PO SCH (13:45)
== END 2017-07-03 14:10 | disposition home or self-care (01) ==
LOC: ONC/OP 10:50
PROVIDERS: ATTEND Internal Medicine Medical Oncology
DX: Z51.11 Encounter for antineoplastic chemotherapy (principal); C50.812 Malignant neoplasm of overlapping sites of left female breast; Z79.899 Other long term (current) drug therapy; Z17.1 Estrogen receptor negative status [ER-]
CPT/HCPCS: 36415; 80053; 82248; 83615; 84100; 84550; 96413; A4216; J1642; J7050; J9354

== ENCOUNTER → 2017-07-19 | Day surgery (SDC) | payer OTHER ==
--- NOTE | 2017-07-19 12:19 | RAD ---
TWO VIEW LEFT FEMUR SERIES: Clinical history: Pain. Comparison: 06-17-17 FINDINGS: No fracture or dislocation of the left femur. Mild degenerative change is incidentally noted, regiona lly. IMPRESSION: No acute, displaced fracture of the left femur. POS: [facility]
== END ==
LOC: RAD 11:21
PROVIDERS: ATTEND Internal Medicine Medical Oncology
DX: M79.651 Pain in right thigh (principal); C50.812 Malignant neoplasm of overlapping sites of left female breast; Z17.0 Estrogen receptor positive status [ER+]; Z79.899 Other long term (current) drug therapy

== ENCOUNTER 2017-07-24 09:16 | Day surgery (SDC) | payer OTHER ==
[2017-07-24] MEDS ORDERED: Sodium Chloride 0.9% 40 ML ONE (09:24)
[2017-07-24] MEDS ORDERED: [UNRECOGNIZED DRUG - OTHER] IVPB SCH (09:45)
[2017-07-24] MEDS ORDERED: ADO TRASTUZUMAB EMTANSINE IVPB SCH (09:45)
[2017-07-24] MEDS ORDERED: ADMIXTURE FEE IVPB SCH (09:45)
[2017-07-24 10:29] VITALS: BP 128/79; TEMP 98.2
== END 2017-07-24 11:19 | disposition home or self-care (01) ==
LOC: ONC/OP 09:16
PROVIDERS: ATTEND Internal Medicine Medical Oncology
DX: Z51.11 Encounter for antineoplastic chemotherapy (principal); C50.812 Malignant neoplasm of overlapping sites of left female breast
CPT/HCPCS: 96413; A4216; J1642; J7050; J9354

== ENCOUNTER 2017-08-02 12:33 | Outpatient (CLI) | payer OTHER ==
--- NOTE | 2017-08-02 14:12 | MRI ---
MRI LUMBAR SPINE NONCONTRAST: Date: 08/02/17 HISTORY: Low back pain with radiculopathy. FINDINGS: Conus medullaris has a normal appearance. Large bone marrow lesion within the T12 vertebral body cont ains T1 signal and is consistent with a hemangioma, especially when correlated with CT from 06/04/17. T12-L1, L1-2, L2-3, and L3-4: Mild osteophytosis. Central canal and neural foramina are patent. L4-5: Mild posterior disc bulge. Circumferential degenerative changes with very mild stenosis of the centra l canal. Mild stenosis of each neural foramen. L5-S1: Desiccation of the disc. Mild posterior disc bulge. Circumferential degenerative changes with mild st enosis of the central canal. There is moderate bilateral foraminal stenoses, left greater than right. IMPRESSION: Mild to moderate degenerative changes lower lumbar spine as detailed above. No focal nerve root compr ession or disc herniation. POS: [facility]
== END 2017-08-02 12:34 | disposition home or self-care (01) ==
LOC: TBSIIMAG 12:33
PROVIDERS: ATTEND Nurse Practitioner Family
DX: M47.26 Other spondylosis with radiculopathy, lumbar region (principal)
CPT/HCPCS: 72148

== ENCOUNTER 2017-08-14 10:26 | Day surgery (SDC) | payer OTHER ==
[2017-08-14] MEDS ORDERED: Sodium Chloride 0.9% 50 ML ONE (10:53)
[2017-08-14] MEDS ORDERED: ADO TRASTUZUMAB EMTANSINE IVPB SCH (11:00)
[2017-08-14] MEDS ORDERED: SODIUM CHLORIDE 0.9% IVPB SCH (11:00)
[2017-08-14] MEDS ORDERED: Lidocaine 1% w/Epinephrine 1:200K 30 ML VIAL FS SCH (12:30)
[2017-08-14] MEDS ORDERED: Lidocaine 1% w/Epinephrine 1:100K 20 ML VIAL NERVE BLCK SCH (13:15)
[2017-08-14] MEDS ORDERED: Lidocaine 1% (PF) 30 ML VIAL ONE (13:18)
[2017-08-14] MEDS ORDERED: Lidocaine 1% w/Epinephrine 1:200K 30 ML VIAL NERVE BLCK SCH (13:30)
[2017-08-14 14:14] VITALS: BP 105/61; TEMP 99.6
--- NOTE | 2017-08-14 15:17 | OP ---
PREOPERATIVE DIAGNOSIS: Metastatic left breast cancer with poor response to antineoplastic chemother apy. POSTOPERATIVE DIAGNOSIS: Metastatic left breast cancer with poor response to antineoplastic chemothe rapy. PROCEDURE PERFORMED: Core biopsies, left breast, requested by Dr. Schuster. SURGEON: Donald Vanegas M.D. ANESTHESIA: 1% Xylocaine with epinephrine. PROCEDURE IN DETAIL: At the patient's bedside as an outpatient oncology unit, her left breast was pr epared with alcohol. Local anesthetic 1% Xylocaine with epinephrine infiltrated into skin and subcut aneous tissue and core biopsies from the lower medial left breast were obtained obtaining three cores , pressure held to hemostatic. Cores submitted in formalin to pathology for receptor re-analysis. P marlo tolerated the procedure well.
== END 2017-08-14 16:11 | disposition home or self-care (01) ==
LOC: ONC/OP 10:26
PROVIDERS: ATTEND Internal Medicine Medical Oncology
PROC: 0HBU3ZX Excision of Left Breast, Percutaneous Approach, Diagnostic (ICD-10-PCS; principal; 2017-08-14)
DX: C50.312 Malignant neoplasm of lower-inner quadrant of left female breast (principal); Z17.1 Estrogen receptor negative status [ER-]
CPT/HCPCS: 88305; 88341; 88342; 88360; 96413; 99212; A4216; G0463; J1642; J2001; J7050; J9354

== ENCOUNTER 2017-09-09 14:04 | Day surgery (SDC) | payer OTHER ==
[2017-09-09] MEDS ORDERED: SODIUM CHLORIDE 0.9% IVPB SCH (14:30)
[2017-09-09] MEDS ORDERED: TRASTUZUMAB IVPB SCH (14:30)
[2017-09-09] MEDS ORDERED: Zoledronic Acid 4 MG in Sodium Chloride 0.9% 100 ML IVPB SCH (14:30)
[2017-09-09 14:53] VITALS: BP 98/58; TEMP 97.9
[2017-09-09] MEDS ORDERED: Sodium Chloride 0.9% 30 ML ONE (16:50)
== END 2017-09-09 17:30 | disposition short-term general hospital (02) ==
LOC: ONC/OP 14:04
PROVIDERS: ATTEND Internal Medicine Medical Oncology
DX: Z51.11 Encounter for antineoplastic chemotherapy (principal); C50.812 Malignant neoplasm of overlapping sites of left female breast; Z79.899 Other long term (current) drug therapy
CPT/HCPCS: 96367; 96413; 99212; A4216; G0463; J1642; J3489; J7050; J9355

== ENCOUNTER 2017-09-09 17:33 | Observation (INO) | payer OTHER ==
[~2017-09-09 17:33] MED LIST: ISOVUE-370 76%-LOCM 1 ML ONE
[2017-09-09 18:36] LABS: #Eosinphils 0.1 thou/uL (0.0-0.7); #Lymphocytes 0.7 thou/uL (1.20-3.40); #Monocytes 0.2 thou/uL (0.11-0.59); #Neutrophils 13.1 thou/uL (1.40-6.50); %Basophils 0.2 % (0.0-1.0); %Eosinophils 0.7 % (0.0-10.0); %Lymphocytes 5.2 % (21.0-51.0); %Monocytes 1.1 % (0.0-10.0); %Neutrophils 92.9 % (42.0-75.0); Hemoglobin 13.5 g/dL (12.0-16.0); Mean Corpuscular Hemoglobin 28.4 pg (27.0-31.0); Mean Corpuscular Volume 91.4 fl (81.0-99.0); Mean Platelet Volume 7.3 fL (7.4-10.4); Platelet Count 370 thou/uL (130-400); Red Blood Cell (RBC) Count 4.74 mill/uL (4.20-5.40); White Blood Cell (WBC) Count 14.1 thou/uL (4.8-10.8)
[2017-09-09 18:47] LABS: Bilirubin Negative (Negative); Blood, Urine Moderate (Negative); Clarity CLOUDY (Clear); Glucose, Urine (Dipstick) Negative (Negative); Leukocyte Moderate (Negative); Nitrite Negative (Negative); Protein, Urine (Dipstick) Negative (Neg-Trace); Specific Gravity, Urine 1.017 (1.002-1.036); Urobilinogen 0.2 mg/dL (0.2-1.0); pH, Urine 5.5 (5.0-9.0)
[2017-09-09 18:52] LABS: Bacteria/HPF None Seen HPF (None Seen); Pathc Cast-AUWi Flag 1.16 (0-2.49)
[2017-09-09 19:03] LABS: ALT (SGPT) 10 U/L (8-55); AST (SGOT) 25 U/L (5-34); Albumin 3.2 g/dL (3.5-5.0); Alkaline Phosphatase 91 U/L (40-150); Anion Gap 14 mmol/L (10-20); BUN (Urea Nitrogen) 13 mg/dL (7.0-18.7); Bilirubin, Total 0.4 mg/dL (0.2-1.2); Calc. Creatinine Clearance 0 mL/min (70-130); Calcium 9.3 mg/dL (7.8-10.44); Carbon Dioxide 20 mmol/L (22-29); Chloride 105 mmol/L (98-107); Estimated GFR-MDRD 87; Globulin 3.8 g/dL (2.4-3.5); Glucose 87 mg/dL (70-105); Potassium 3.4 mmol/L (3.5-5.1); Sodium 136 mmol/L (136-145)
[2017-09-09 19:04] LABS: Renal Epithelial 0-3 HPF (0-3)
[2017-09-09 19:05] LABS: Hyaline Casts/LPF 0-3 HYALINE CAST LPF (0-3 Hyaline)
--- NOTE | 2017-09-09 19:27 | RAD ---
CHEST ONE VIEW: HISTORY: Chemo treatment today. Dyspnea after treatment. COMPARISON: 11/19/2016 FINDINGS: Stable right-sided Mediport catheter. Stable configuration of the cardiac silhouette. There are dif fuse interstitial and alveolar infiltrates. No pleural effusion. No pneumothorax. IMPRESSION: Diffuse interstitial and alveolar infiltrates. POS: [facility]
--- NOTE | 2017-09-09 21:08 | CT ---
CT ANGIOGRAM CHEST: HISTORY: Dyspnea. Chemotherapy. Difficulty breathing. COMPARISON: 06/02/2017 TECHNIQUE: A CT angiogram of the chest was performed in the axial plane. Three-dimensional reformatted images a re submitted for interpretation. FINDINGS: There appears to be post treatment change along with infiltrating neoplasm in the left breast. There is an enlarged left axillary lymph node, measuring 2.5 x 2 cm. An additional enlarged left axillary lymph node measures 2.7 x 1.8 cm. An enlarged right axillary lymph node measures 1 x 1.6 cm. Two o f the three lymph nodes have developed since the prior examination. The second smaller lymph node in the left axilla has increased in size, previously measuring 1.9 cm in maximum dimension. There is e xtensive thickening of the left breast skin, suggesting inflammatory breast cancer. The upper solid organs are unremarkable. No mediastinal mass, lymphadenopathy, or hematoma. Heart size is within normal limits. No pericardi al effusion. There are coronary artery calcifications. The thoracic aorta and the abdominal aorta h ave a normal caliber. No periaortic fat stranding. Adequate contrast opacification of the pulmonary arterial system at the level of the segmental arteri es. No filling defect to suggest thromboembolism. Ground glass and interstitial opacities throughout the lung parenchyma are redemonstrated. In the in terim, there are multifocal lung parenchymal opacities, which may represent multilobar pneumonia. Ho wever, some of these opacities have a more mass-like appearance, suggesting interval development of m ultifocal lung parenchymal metastases. A probable metastatic nodule in the right upper lobe measures 1.3 x 1.3 cm. The metastatic nodule in the left upper lobe measures 1.7 x 1.2 cm. Adjacent metasta tic lesion measures 1.1 x 1.3 cm. There is a mass in the left lower lobe, measuring 1.2 x 1.7 cm. T he overall number of masses is too small to adequately assess. The trachea and central bronchi are p atent. No pneumothorax or pleural effusion. No lytic lesions. There are patchy sclerotic foci in the thoracic spine, which are similar to the pr evious examination. IMPRESSION: 1. No evidence of pulmonary artery embolism to the level of the segmental arteries. 2. Diffuse interstitial and ground glass opacities in the lung parenchyma, suggesting post treatment change versus infiltrate. Interval development of multifocal nodularity throughout the lung parench yma, suggesting focal air space disease with extensive metastatic disease to the lung parenchyma. 3. Interval enlargement and development of bilateral axillary lymph nodes. 4. Interval marked worsening and thickening of the left breast dermis, suggesting inflammatory breas t cancer. POS: [facility]
[2017-09-09] MEDS ORDERED: Morphine 4 MG/ML VIAL ONE (22:01)
[2017-09-09 22:25] LABS: Lactic Acid 1.5 mmol/L (0.5-2.2)
[2017-09-09] MEDS ORDERED: Ondansetron ODT 8 MG TAB ONE (22:33)
[2017-09-09] MEDS ORDERED: Ondansetron HCl/PF 4 MG/2 ML Vial IVP PRN (23:12)
[2017-09-09] MEDS ORDERED: Ondansetron ODT 4 MG TAB SL PRN (23:12)
[2017-09-09 23:42] VITALS: BMI 18.4
[2017-09-10] MEDS: Sodium Chloride 0.9% 1,000 ML IV SCH ×4 (00:30→17:56)
[2017-09-10] MEDS: Morphine 2 MG/ML SYRINGE SLOW IVP PRN ×3 (00:37→06:22)
[2017-09-10] MEDS ORDERED: Morphine IR 10 MG/5 ML UDCUP PO PRN (02:46)
[2017-09-10] MEDS ORDERED: HYDROcodone/Acetaminophen 5/325 mg Tablet PO PRN (02:46)
[2017-09-10] MEDS ORDERED: Ibuprofen 200 MG TAB PO PRN (02:46)
[2017-09-10] MEDS ORDERED: Ondansetron ODT 4 MG TAB PO PRN (02:46)
[2017-09-10] MEDS ORDERED: Ondansetron HCl/PF 4 MG/2 ML Vial IVP PRN (02:46)
[2017-09-10] MEDS ORDERED: Acetaminophen 500 MG TAB PO PRN (02:46)
[2017-09-10] MEDS: cefTRIAXone\\ROCEPHIN 2 GM in Sodium Chloride 0.9% 100 ML IVPB SCH (03:37)
[2017-09-10 04:41] LABS: ALT (SGPT) 9 U/L (8-55); AST (SGOT) 21 U/L (5-34); Albumin 2.5 g/dL (3.5-5.0); Alkaline Phosphatase 67 U/L (40-150); Anion Gap 11 mmol/L (10-20); BUN (Urea Nitrogen) 10 mg/dL (7.0-18.7); Bilirubin, Total 0.3 mg/dL (0.2-1.2); Calc. Creatinine Clearance 78 mL/min (70-130); Calcium 8.3 mg/dL (7.8-10.44); Carbon Dioxide 23 mmol/L (22-29); Chloride 109 mmol/L (98-107); Estimated GFR-MDRD Greater than 90; Globulin 2.9 g/dL (2.4-3.5); Glucose 86 mg/dL (70-105); Potassium 3.9 mmol/L (3.5-5.1); Protein, Total 5.4 g/dL (6.0-8.3); Sodium 139 mmol/L (136-145)
[2017-09-10 05:17] LABS: Band 4 % (5-11); Eosinophils 2 % (0-10); Hemoglobin 11.2 g/dL (12.0-16.0); Lymphocytes 1 % (21-51); MDiff Complete? YES; Mean Corpuscular HGB CONC 32.1 g/dL (32.0-36.0); Mean Corpuscular Hemoglobin 29.5 pg (27.0-31.0); Mean Platelet Volume 6.8 fL (7.4-10.4); Monocytes 1 % (0-10); Neutrophil 91 % (42-75); PLT Morphology Comment Appears Adequate; Platelet Count 303 thou/uL (130-400); RBC Distribution Width 13.7 % (11.5-14.5); RBC Morphology Normal; Reactive Lymphocytes 1 % (0-10); White Blood Cell (WBC) Count 10.7 thou/uL (4.8-10.8)
--- NOTE | 2017-09-10 06:44 | HP ---
DATE OF ADMISSION: 09/10/2017 PRIMARY CARE PHYSICIAN: Basil mena. PRIMARY ONCOLOGIST: Dr. Schuster. CHIEF COMPLAINT: General weakness and left leg pain. 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 Patient currently receiving chemothe rapy and radiation treatments through the cancer clinic presenting with increasing weakness, shortnes s of breath, and intractable left leg pain. Patient states she has been taking medications to contro l the pain, but this does not seem to help. Patient previously had received methadone and morphine e xtended release 30 mg b.i.d. Patient denied any lower extremity swelling, trauma, or fall. Patient does have extensive metastatic breast cancer including brain involvement. Patient initially rated th e pain as 9/10 and apparently ran out of her chronic narcotic medication regimen in last 3 to 4 days prior to this evaluation. Patient denies specific fever, chills, but did admit to increase cough and shortness of breath. Patient underwent general evaluation in the emergency room including CT angiog rip of the chest dated 09/09/2017 showing no evidence of pulmonary embolus. Diffuse interstitial and ground glass opacities in the lung parenchyma. Interval enlargement and development of bilateral ax illary lymph nodes. Also noted was marked worsening and thickening of the left breast dermis suggest ing inflammatory breast cancer. In the emergency room, patient received Zofran, morphine sulfate, Le vaquin, and intravenous normal saline x1 liter. PAST MEDICAL HISTORY: 1. Left breast cancer with current chemotherapy and radiation treatments. 2. Brain metastasis secondary to #1. 3. Left lower extremity pain, chronic. PAST SURGICAL HISTORY: 1. Status post section. 2. Status post left breast biopsy. CURRENT MEDICATIONS: 1. Dexamethasone 4 mg p.o. t.i.d. 2. Gabapentin 300 mg p.o. t.i.d. 3. Ibuprofen 400 mg p.o. q.4 hours p.r.n. 4. Methadone 10 mg p.o. b.i.d. 5. MS Contin 30 mg p.o. b.i.d. ALLERGIES: No known drug allergies. FAMILY HISTORY: Reviewed and negative. SOCIAL HISTORY: Patient resides in [place], [place]. Divorce. No current alcohol, tobacco, or illic it drug use. REVIEW OF SYSTEMS: The following complete review of systems was otherwise negative, except as stated per HPI: Constitutional: Weight loss or gain, ability to conduct usual activities. Skin: Rash, i tching. Eyes: Double vision, pain. ENT/Mouth: Nose bleeding, neck stiffness, pain, tenderness. C ardiovascular: Palpitations, dyspnea on exertion, orthopnea. Respiratory: Shortness of breath, whe ezing, cough, hemoptysis, fever, or night sweats. Gastrointestinal: Poor appetite, abdominal pain, heartburn, nausea, vomiting, constipation, or diarrhea. Genitourinary: Urgency, frequency, dysuria, nocturia. Musculoskeletal: Pain, swelling. Neurologic/Psychiatric: Anxiety, depression. Allergy /Immunologic: Skin rash, bleeding tendency. PHYSICAL EXAMINATION: VITAL SIGNS: On admission, blood pressure 94/53, pulse 115, respiratory rate 22, temperature 98.5 de grees Fahrenheit, O2 saturation 91% on 3 liters per minute by nasal cannula. GENERAL APPEARANCE: This is a 47-year-old female, thin, in mild distress. HEENT: Pupils are equal, round, and reactive to light and accommodation. Extraocular muscles are in tact. No scleral icterus, no conjunctival injection. Nares patent. OP is clear. Oral mucosa is dr y appearing. NECK: Supple, no cervical adenopathy, no thyromegaly, no carotid bruits, no JVD appreciated. Cervic al spine with full active and passive range of motion. CHEST: Basilar rhonchi bilaterally. CARDIOVASCULAR: S1, S2 with tachycardia. No murmur, rub, or gallop. ABDOMEN: Rounded, soft, nontender, nondistended. Bowel sounds are positive in all four quadrants. There is no hepatosplenomegaly, no abdominal bruits, no rebound or guarding appreciated. EXTREMITIES: Warm and dry with fair turgor. Generalized atrophy noted. Positive tenderness to palp ation in the entire left femur. Pulses palpable distally at the dorsalis pedis, posterior tibial, an d popliteal arteries bilaterally. Capillary refill less than 2 seconds. NEUROLOGIC: Cranial nerves II-XII are grossly intact. No focal or lateralizing signs appreciated. PERTINENT LABORATORY DATA AND X-RAY FINDINGS: Sodium 136, potassium 3.4, chloride 105, CO2 of 20, BU N 13, creatinine 0.71, estimated GFR of 87, glucose 87. Lactic acid level ranged between 1.5 to 2.1, calcium 9.3. LFTs within normal limits. CBC showed a white blood cell count of 14.1, hemoglobin 13 .5, hematocrit 43.4, platelet count 370 with 93% neutrophilia. Urinalysis showed moderate blood and leukocyte esterase, 11-20 rbc's and wbc's per high power field. Portable chest x-ray dated 8 showed diffuse interstitial and alveolar opacities. CT angiogram of the chest dated 09/09/2017 steven wed no evidence of pulmonary embolus. Diffuse interstitial and ground glass opacities in the lung pa renchyma. Interval development of multifocal nodularity throughout the lung parenchyma. Interval en largement and development of bilateral axillary lymph nodes. EKG dated 09/09/2017 by my interpretati on shows sinus tachycardia with heart rates in the 20s. Attenuated R waves noted in the precordial l talya. Normal axis. No acute ST-T or T-wave changes noted. ASSESSMENT AND PLAN: 1. Metastatic breast cancer. Patient will be observed on the medical oncology unit. We will initia te morphine extended release 45 mg b.i.d. with immediate-release morphine 10 mg q.4 hours p.r.n. [facility] in the a.m. for goals of care discussion. Patient likely a candidate fo r hospice evaluation. 2. Intractable left lower extremity pain. Suspect secondary to metastatic process of the left femur . We will obtain plain radiographs of the left lower extremity. 3. Dehydration. We will continue intravenous normal saline at 100 mL per hour. Encourage free wate r intake. 4. Hypokalemia. Potassium chloride 40 mEq p.o. t.i.d. with repeat potassium level in the a.m. 5. Prophylaxis. Sequential compression devices while in bed. Pepcid 20 mg p.o. b.i.d. 6. Code status is FULL. Surrogate medical decision maker is her spouse, Arcadio Arredondo.
[2017-09-10] MEDS: Dexamethasone 4 MG TAB PO SCH ×3 (08:01→20:06)
[2017-09-10] MEDS: Famotidine 20 MG TAB PO SCH ×2 (08:01→20:06)
[2017-09-10] MEDS ORDERED: Gabapentin 300 MG CAP PO SCH (09:00)
[2017-09-10] MEDS ORDERED: Morphine ER 15 MG TAB PO SCH (09:00)
--- NOTE | 2017-09-10 09:06 | RAD ---
LEFT FEMUR 2 VIEWS: HISTORY: Left lower extremity pain, breast cancer. FINDINGS: Comparison is made with the exam of 07/19/17. The left femur is intact. No suspicious osteolytic or osteoblastic lesions are seen. POS: [facility]
[2017-09-10] MEDS ORDERED: HYDROcodone/Acetaminophen 10/325 mg Tablet PO PRN (14:34)
--- NOTE | 2017-09-10 14:39 | PDOC.EVN ---
Event Note - Event Note Event Note: spoke with Dr Casey about her pain meds. He stated that she has not been coming in the clinic for her appointments and was on methadone 20mg bid but she has been taking only 10mg bid. He recommended to start her on methadone 10mg bid and hydrocodone 10mg q6hr prn and neurontin 600mg am, pm and 300mg in the afternoon.
--- NOTE | 2017-09-10 15:43 | CON ---
DATE OF CONSULTATION: 09/10/2017 REASON FOR CONSULTATION: Breast cancer. HISTORY OF PRESENT ILLNESS: Ms. Russell is a 47-year-old female who has a stage IV invasive ductal carcinoma of the left breast. She has undergone three chemotherapy regimens and progressed th rough each one. In May of this year, she had a metastatic brain lesions and completed whole bra in radiation in June. Her left breast had a fungating mass, diagnosis was ER/OK negative, HER-2 pos itive. She was re-biopsied by Dr. Vanegas recently and to check hormone receptor status. Yesterday, she was started on Kadcyla, Xeloda and lapatinib. Last night, she woke up with left femur pain and p resented to the emergency room for evaluation. She has been under the care of Dr. Casey for pain management. The patient had a femur x-ray which showed no bone lesions. She also had a CT angio wh ich showed no evidence of pulmonary embolism. It did show extensive metastatic disease in the lung p arenchyma, interval enlargement of the bilateral axillary lymph nodes and worsening of the left breas t dermis. The patient was given medications and admitted for further treatment. PAST MEDICAL HISTORY: Stage IV, ER/OK negative, HER-2 positive breast cancer. PAST SURGICAL HISTORY: Breast biopsy. ALLERGIES: No known drug allergies. HOME MEDICATIONS: 1. Acyclovir 800 mg daily. 2. Methadone 20 mg b.i.d. 3. Neurontin 300 mg t.i.d. 4. [place]baugh 10/325 p.r.n. FAMILY HISTORY: No history of breast cancer. SOCIAL HISTORY: , has 4 children, lives with her significant other and daughter. REVIEW OF SYSTEMS: Twelve-point review of systems is negative except for noted in HPI. PHYSICAL EXAMINATION: VITAL SIGNS: Temperature is 98.1, pulse is 104, respiratory rate 20, BP is 104/62. She is 95% on 2 liters. GENERAL: A chronically ill-appearing female in no acute distress. HEENT: Normocephalic, atraumatic. Pupils are equal and reactive to light. NECK: Supple. CARDIOVASCULAR: Regular rate and rhythm. LUNGS: Clear. ABDOMEN: Soft, nontender, bowel sounds are positive. EXTREMITIES: No clubbing, cyanosis or edema. SKIN: She has a fungating mass to her left chest wall. NEUROLOGIC: Nonfocal. PSYCHIATRIC: The patient is alert and oriented and appropriate. PERTINENT LABORATORY AND X-RAYS: Current WBCs are 10.7, hemoglobin 11.2, hematocrit 34.9, platelet c ount 303,000, 91% neutrophils, 1% lymphocytes. Sodium is 139, potassium 3.9, chloride 109, CO2 is 23 , BUN is 10, creatinine 0.65, calcium is 8.3, total bilirubin is 0.3, AST is 21, ALT is 9, alkaline p hosphatase is 67, serum total protein is 5.4, albumin 2.5, globulin 2.9. IMPRESSION: 1. Metastatic breast cancer. 2. Intractable pain. DISCUSSION: The patient's pain management doctor has been consulted and her medications have been re sumed. She did have chemotherapy yesterday. We will continue her oral medications. Prognosis has b laine discussed with her daughter. Palliative can care team has been consulted. We will consult case management for assistance with palliative care at home. Thank you for the consult. We will follow her hospital course.
[2017-09-10] MEDS: Gabapentin 300 MG CAP PO SCH ×3 (16:00→20:07)
[2017-09-10] MEDS ORDERED: METHadone HCl 10 MG TAB PO SCH ×2 (19:30→21:00)
[2017-09-10] MEDS: Lidocaine 5% Patch TD SCH (20:07)
[2017-09-10] MEDS: Benzonatate 100 MG CAP PO PRN (21:17)
[2017-09-11] MEDS: Sodium Chloride 0.9% 1,000 ML IV SCH ×4 (02:13→23:27)
[2017-09-11] MEDS: cefTRIAXone\\ROCEPHIN 2 GM in Sodium Chloride 0.9% 100 ML IVPB SCH (04:07)
--- NOTE | 2017-09-11 07:35 | PDOC.PN ---
- Subjective Encounter Start Date: 09/11/17 Encounter Start Time: 07:33 Subjective: cont to have burning pain in L lat thigh - Objective Resuscitation Status: Resuscitation Status FULL:Full Resuscitation MAR Reviewed: Yes Vital Signs & Weight: Vital Signs (12 hours) Temp Pulse Resp BP Pulse Ox 09/11/17 07:20 97.7 F 105 H 18 122/76 92 L 09/10/17 23:55 98.1 F 113 H 16 120/73 93 L 09/10/17 20:00 98.4 F 113 H 20 Weight Admit Weight 104 lb 4.8 oz Weight 104 lb 4.8 oz I&O: 09/10/17 09/11/17 09/12/17 06:59 06:59 06:59 Intake Total 1302 1360 Balance 1302 1360 Result Diagrams: 09/10/17 04:04 09/10/17 04:04 Phys Exam - Physical Examination Neck: no JVD Respiratory: clear to auscultation bilateral Cardiovascular: RRR, no significant murmur Gastrointestinal: soft, non-tender, positive bowel sounds Musculoskeletal: no edema Dx/Plan (1) Neuropathic pain Code(s): M79.2 - NEURALGIA AND NEURITIS, UNSPECIFIED Status: Acute Comment: lateral cut nerve of thigh (2) UTI (urinary tract infection) Status: Acute Qualifiers: Urinary tract infection type: site unspecified Hematuria presence: without hematuria Qualified Code(s): N39.0 - Urinary tract infection, site not specified (3) Dyspnea Code(s): R06.00 - DYSPNEA, UNSPECIFIED Status: Acute Qualifiers: Dyspnea type: unspecified Qualified Code(s): R06.00 - Dyspnea, unspecified Comment: lung mets from breast CA (4) Breast carcinoma metastatic to multiple sites Code(s): C50.919 - MALIGNANT NEOPLASM OF UNSP SITE OF UNSPECIFIED FEMALE BREAST Status: Acute Qualifiers: Laterality: left Comment: Poor prognosis given aggressive metastasis, Medical and Rad Oncology following - Plan cont gabapentin, lidocaine patch -: cont respiatory tx -: discuss with oncology * .
[2017-09-11] MEDS: Famotidine 20 MG TAB PO SCH ×2 (07:37→20:24)
[2017-09-11] MEDS: METHadone HCl 10 MG TAB PO SCH ×2 (07:38→20:24)
[2017-09-11] MEDS: Dexamethasone 4 MG TAB PO SCH ×3 (07:39→20:24)
[2017-09-11] MEDS: Gabapentin 300 MG CAP PO SCH ×3 (07:39→20:23)
[2017-09-11] MEDS: Lidocaine Patch Removal 1 EACH TOP SCH (07:40)
[2017-09-11] MEDS ORDERED: Ciprofloxacin 0.2% Otic ONE (08:38)
[2017-09-11] MEDS ORDERED: Lidocaine 5% Patch TD SCH (09:00)
[2017-09-11] MEDS ORDERED: Dexamethasone 20 MG in Sodium Chloride 0.9% 50 ML IVPB SCH (09:15)
[2017-09-11] MEDS ORDERED: CARBOPLATIN IVPB SCH (09:15)
[2017-09-11] MEDS ORDERED: PALONOSETRON HCL 0.05 MG/ML 5 ML VIAL IVP SCH (09:15)
[2017-09-11] MEDS ORDERED: GEMCITABINE HCL IVPB SCH ×2 (09:15→10:15)
[2017-09-11] MEDS ORDERED: SODIUM CHLORIDE 0.9% IVPB SCH ×3 (09:15→10:15)
[2017-09-11] MEDS: HYDROcodone/Acetaminophen 10/325 mg Tablet PO PRN (14:45)
[2017-09-11] MEDS: Benzonatate 100 MG CAP PO PRN (14:45)
--- NOTE | 2017-09-11 15:12 | PDOC.EVN ---
Event Note - Event Note Event Note: talked with Dr Schuster, chemo today, DC tomorrow
[2017-09-11] MEDS: Lidocaine 5% Patch TD SCH (20:25)
[2017-09-11] MEDS ORDERED: Lidocaine Patch Removal 1 EACH TOP SCH (21:00)
[2017-09-12] MEDS: Benzonatate 100 MG CAP PO PRN (02:48)
[2017-09-12] MEDS: cefTRIAXone\\ROCEPHIN 2 GM in Sodium Chloride 0.9% 100 ML IVPB SCH (04:06)
[2017-09-12] MEDS: HYDROcodone/Acetaminophen 10/325 mg Tablet PO PRN (04:10)
--- NOTE | 2017-09-12 08:50 | DIS ---
TRANSFER OF CARE NOTE PRIMARY CARE PHYSICIAN: [facility] call admission for [facility]. ONCOLOGIST: Dr. Hoda Schuster DATE OF ADMISSION: 09/10/2017 DATE OF DISCHARGE: 09/12/2017 DISCHARGE DISPOSITION: Home. FINAL DIAGNOSES: 1. Stage IV invasive ductal carcinoma, metastatic. 2. Shortness of breath. 3. Paraesthesia of the left lateral cutaneous nerve of the thigh. DISCHARGE MEDICATIONS: Gabapentin 300 mg p.o. t.i.d., methadone 10 mg p.o. b.i.d., morphine ER 30 mg p.o. b.i.d., Decadron 4 mg p.o. t.i.d., ibuprofen 400 mg p.o. q.4h. p.r.n. ALLERGIES: No known drug allergies. CODE STATUS: Full. DIET: Diet as tolerated. PENDING AT THE TIME OF DISCHARGE: Nothing. HOSPITAL COURSE: The patient with metastatic locally invasive breast cancer, admitted with pain whic h is clinically a paraesthesia of the left lateral nerve of the thigh. During her hospital stay, she received chemotherapy with carboplatin, gemcitabine. Pertinent laboratory in the hospital; CBC: White count 14.1, follow up 10.7, hemoglobin 13.5, follow up 11.2, platelet count 370,000. Follow up 303. Chemistries; 09/10/2017. Comp metabolic profile n ormal except for low serum proteins and a chloride of 109. Urine demonstrated white and red cells. Cultures were drawn. Urine; skin flower. Blood cultures negative. The patient is being discharged for followup with Dr. Schuster per his recommendations. PROCEDURES: No procedures were done. CONSULTATION: Consultation with Dr. Schuster/Gricelda Todd, Oncology.
[2017-09-12 08:58] VITALS: BP 121/74
[2017-09-12] MEDS: METHadone HCl 10 MG TAB PO SCH (09:46)
[2017-09-12] MEDS: Dexamethasone 4 MG TAB PO SCH ×2 (09:48→15:20)
[2017-09-12] MEDS: Famotidine 20 MG TAB PO SCH (09:48)
[2017-09-12] MEDS: Sodium Chloride 0.9% 1,000 ML IV SCH (09:50)
[2017-09-12] MEDS: Lidocaine Patch Removal 1 EACH TOP SCH (09:50)
[2017-09-12 11:53] VITALS: TEMP 98
[2017-09-12] MEDS: Gabapentin 300 MG CAP PO SCH (15:20)
== END 2017-09-12 16:22 | disposition home or self-care (01) ==
LOC: ERS 17:33 → ONC 23:22
PROVIDERS: ADMIT Family Medicine; ATTEND Family Medicine
DX: C50.912 Malignant neoplasm of unspecified site of left female breast (principal); R53.1 Weakness; G89.29 Other chronic pain; M79.605 Pain in left leg; M79.2 Neuralgia and neuritis, unspecified; C79.31 Secondary malignant neoplasm of brain; C78.00 Secondary malignant neoplasm of unspecified lung; E87.6 Hypokalemia; E86.0 Dehydration; N39.0 Urinary tract infection, site not specified; Z79.891 Long term (current) use of opiate analgesic; Z79.899 Other long term (current) drug therapy; Z17.1 Estrogen receptor negative status [ER-]
CPT/HCPCS: 36415; 71045; 71275; 80053; 81003; 81015; 83605; 85007; 85025; 85027; 87040; 87086; 93005; 96361; 96366; 96367; 96374; 96375; 96376; 96411; 96413; 96415; 96417; 99212; A4216; G0378; G0463; J0696; J1100; J1642; J2270; J2469; J3489; J7050; J8540; J9045; J9201; J9355

== ENCOUNTER 2017-09-19 09:05 | Day surgery (SDC) | payer OTHER ==
[2017-09-19] MEDS ORDERED: Sodium Chloride 0.9% 30 ML ONE (09:15)
[2017-09-19] MEDS ORDERED: GEMCITABINE HCL IVPB SCH (09:30)
[2017-09-19] MEDS ORDERED: SODIUM CHLORIDE 0.9% IVPB SCH (09:30)
[2017-09-19 11:05] VITALS: BP 107/68; TEMP 98.2
== END 2017-09-19 11:20 | disposition home or self-care (01) ==
LOC: ONC/OP 09:05
PROVIDERS: ATTEND Internal Medicine Medical Oncology
DX: Z51.11 Encounter for antineoplastic chemotherapy (principal); C50.812 Malignant neoplasm of overlapping sites of left female breast; Z17.1 Estrogen receptor negative status [ER-]; Z79.899 Other long term (current) drug therapy
CPT/HCPCS: 96413; A4216; J1642; J7050; J9201

== ENCOUNTER 2017-09-21 05:15 | Inpatient (IN) | payer OTHER ==
[2017-09-21] MEDS: Sodium Chloride 0.9% 1,000 ML IV SCH ×2 (08:45→18:06)
[2017-09-21 09:36] VITALS: BMI 18.8
[2017-09-21] MEDS ORDERED: Lorazepam 2 MG/ML VIAL SLOW IVP PRN (10:58)
[2017-09-21] MEDS ORDERED: Ondansetron ODT 8 MG TAB SL PRN (10:58)
[2017-09-21] MEDS ORDERED: Guaifenesin DM 100-10/5 ML UDCUP PO PRN (10:58)
[2017-09-21] MEDS ORDERED: Acetaminophen 325 MG TAB PO PRN (10:58)
[2017-09-21] MEDS ORDERED: Famotidine 20 MG TAB PO SCH ×2 (11:15→21:00)
[2017-09-21] MEDS ORDERED: Ibuprofen 200 MG TAB PO PRN (11:21)
[2017-09-21] MEDS: HYDROcodone/Acetaminophen 10/325 mg Tablet PO PRN ×2 (11:49→16:07)
--- NOTE | 2017-09-21 15:00 | HP ---
REASON FOR ADMISSION: Brain mets with seizure and stage IV metastatic breast cancer. HISTORY OF PRESENTING ILLNESS: The patient had a seizure around 10:00 p.m. yesterday evening. Per ivana lora, this was grand mal seizure and lasted for 5 minutes. They took her to [facility] where she had another episode of grand mal seizure. The patient was given medications, stabilize d and transferred here. Currently, patient is postictal. She wakes up, but is not fully oriented. She has known history of metastatic breast cancer. This is HER-2 hui positive fungating left breast cancer. She has metastasis to brain and spine, and likely lymphatic spread. She has had multiple ch emo regimens placed despite which her cancer is progressing. This information is obtained by looking at prior consultations by Oncology on the [facility]. Has some dry cough, but no fever. No complaint s of urinary symptoms. PAST MEDICAL AND SURGICAL HISTORY: History of metastatic breast cancer with multiple metastases to b rain and spine, chronic left lower extremity pain C6, has had prior , left breast biopsy. CURRENT MEDICATIONS: The patient is on methadone 20 mg twice daily, Zofran p.r.n., Motrin 400 mg p.o . q.4 hourly p.r.n., Letts 10/325 mg 2 tabs p.o. q.4 hourly p.r.n. ALLERGIES: No known drug allergies. PERSONAL HISTORY: Does not abuse alcohol or drugs. No history of smoking. FAMILY HISTORY: Mother has had CABG and is currently here in the room. Had a brother who of pa ncreatic cancer at the age of 48 years. REVIEW OF SYSTEMS: The following complete review of systems was negative, unless otherwise mentioned in the HPI or below: Constitutional: Weight loss or gain, ability to conduct usual activities. Skin: Rash, itching. Eyes: Double vision, pain. ENT/Mouth: Nose bleeding, neck stiffness, pain, tenderness. Cardiovascular: Palpitations, dyspnea on exertion, orthopnea. Respiratory: Shortness of breath, wheezing, cough, hemoptysis, fever or night sweats. Gastrointestinal: Poor appetite, abdominal pain, heartburn, nausea, vomiting, constipation, or diarr hea. Genitourinary: Urgency, frequency, dysuria, nocturia. Musculoskeletal: Pain, swelling. Neurologic/Psychiatric: Anxiety, depression. Allergy/Immunologic: Skin rash, bleeding tendency. PHYSICAL EXAMINATION: GENERAL: The patient is a 47-year-old female who is currently postictal. VITAL SIGNS: Blood pressure 122/76, pulse 110 per minute, respiratory rate 16 per minute, temperatur e 98.6 degrees Fahrenheit and saturating 98% on room air. NECK: Supple, no elevated JVD. EYES: Extraocular muscles intact. Pupils reacting to light. ORAL CAVITY: Mucous membranes are dry. No exudates or congestion. CARDIOVASCULAR SYSTEM: S1, S2 heard. Regular rhythm. RESPIRATORY SYSTEM: Air entry 1+ bilaterally. No rales or rhonchi. ABDOMEN: Soft, bowel sounds heard. No tenderness, rigidity or guarding. EXTREMITIES: No peripheral edema or calf tenderness. VASCULAR SYSTEM: Peripheral pulses 1+ bilateral, no ischemic ulcerations or gangrene. CENTRAL NERVOUS SYSTEM: The patient is currently postictal, but responds to verbal stimuli. She mov es all 4 extremities with no focal signs seen at present. PSYCHIATRIC SYSTEM: Cannot be assessed as patient is postictal at present. BREAST: Left breast, patient has a large fungating mass which is bleeding and oozing at multiple sit es. LABORATORY DATA AND IMAGING DATA: Sodium 135, glucose 139, AST 54, albumin 3.2, lactic acid 2.8, hem oglobin and hematocrit 9.8 and 30, magnesium 1.6. CT chest showed no evidence of PE. Please note al l these labs were done at [facility]. CT head without contrast done showed areas of par enchymal hypodensities and white matter attenuation with sparing of cerebral cortex and no significan t mass effect, no evidence of hemorrhage was seen. Chest x-ray done shows interstitial airspace dise ase. BUN 13, creatinine 0.7, calcium 9.1, total bilirubin 0.2, alkaline phosphatase 89, AST 54, ALT 47, albumin 3.2, PT/INR 13 and 1.0, PTT 32. White count of 5.4, platelet count is 157 with 81% neutr ophils. First set of troponin is negative. CT angio chest done showed no evidence of PE, extensive abnormal soft tissue and mass lesions within the left breast consistent with primary breast malignanc y. There is metastatic axillary lymphadenopathy with lymphangitic spread of carcinoma and pulmonary metastatic disease and scattered sclerotic osseous metastasis seen. CT cervical spine showed no acut e osseous abnormality of the C-spine. EKG showed sinus tachycardia at 132 beats per minute, nonspeci fic ST-T wave changes were seen. CLINICAL IMPRESSION AND PLAN: The patient will be admitted to oncology floor for seizures with 2 epi sodes of grand mal seizure secondary to brain metastasis from stage IV breast cancer. Patient's over all prognosis is very poor. She was loaded up with Keppra at [facility] and we will continue th e same here. She was also given vancomycin and Zosyn for suspected pneumonia. The patient currently is not symptomatic and we will avoid further antibiotics. I have discussed her poor prognosis with , mother, brother, and cousin in the room. They are all thinking about going home on hospice. Case management consultation will be requested as well. The patient has had stage [address] cancer with multiple metastases with continued progression despite chemo and radiation treatments. Her overall prognosis is very poor. Once the family and case management decide and confirm home ho spice situation, we will discharge patient home. Until then, she should be on Keppra with gentle hyd ration and wait for her to fully wake up so that oral diet can be initiated.
[2017-09-21 16:17] VITALS: BP 107/67; TEMP 98.8
[2017-09-21] MEDS ORDERED: METHadone HCl 10 MG TAB PO SCH (21:00)
[2017-09-21] MEDS ORDERED: Docusate 100 MG CAP PO SCH (21:00)
[2017-09-21] MEDS ORDERED: levETIRAcetam 500 MG TAB PO SCH (21:00)
== END 2017-09-21 20:17 | disposition hospice, inpatient (51) | DRG 54 ==
LOC: ERS 05:15 → ONC 06:15
PROVIDERS: ADMIT Internal Medicine; ATTEND Internal Medicine
DX: C79.31 Secondary malignant neoplasm of brain (principal); J18.9 Pneumonia, unspecified organism; C79.51 Secondary malignant neoplasm of bone; G40.89 Other seizures; C50.912 Malignant neoplasm of unspecified site of left female breast; Z51.5 Encounter for palliative care
CPT/HCPCS: 93005; J2270